=== PATIENT | male | born 1935 | race Caucasian/White ===

== ENCOUNTER 2021-05-19 17:14 | Emergency (ER) | payer OTHER, MEDICARE ==
[2021-05-19] MEDS ORDERED: Acetaminophen 500 MG Tab PO ONE (18:23)
--- NOTE | 2021-05-19 18:23 | EDM.PDOC ---
ED HPI GENERAL MEDICAL PROBLEM - General Chief Complaint: Upper Extremity Injury/Pain Stated Complaint: FELL OUT OF THE BOAT, RIGHT EYE, RIGHT ELBOW, RIBS Time Seen by Provider: 05/19/21 18:16 Source of Information: Reports: Patient, RN, RN Notes Reviewed History Limitations: Reports: No Limitations - History of Present Illness INITIAL COMMENTS - FREE TEXT/NARRATIVE: Kristofer is an 85 y/o male who presents to the ED via personal vehicle with complaints of fall from a boat onto the dock. The patient states the accident occurred about two hours prior to his arrival to this facility. He denies loss of consciousness during the event, however he did strike his head; he currently takes a daily ASA 81mg. The patient reports pain in his right forehead and right ribs. He notes and increase in his rib pain with inspirations. He denies history of brain bleed, head trauma, or rib fractures. He denies vision changes, projectile vomiting, lethargy, palpitations, headache, abdominal pain, or pain to his extremities. He has taken no medications for his symptoms. GCS 15 on arrival. He denies cervical point tenderness or pain to the neck with lateral rotation of the head. Generalized Pain Score (Numeric/FACES): 2 - Related Data Allergies Allergy/AdvReac Type Severity Reaction Status Date / Time No Known Allergies Allergy Verified 05/19/21 17:54 Home Meds: Home Meds Aspirin [Aspirin EC] 81 mg PO DAILY 05/19/21 [History] Furosemide [Lasix] 40 mg PO ASDIRECTED 05/19/21 [History] Insulin Aspart [NovoLOG] 36 units SQ DAILY 05/19/21 [History] Insulin Glarg,Human.Rec.Analog [Lantus] 9 units SQ ASDIRECTED 05/19/21 [History] Lactobacillus Acidophilus [Probiotic] 1 each PO ASDIRECTED 05/19/21 [History] Losartan [Cozaar] 25 mg PO DAILY 05/19/21 [History] Metoprolol Succinate [Toprol XL] 25 mg PO DAILY 05/19/21 [History] Multivitamin [Multi-Day Vitamins] 1 each PO ASDIRECTED 05/19/21 [History] Pioglitazone [Actos] 30 mg PO 05/19/21 [History] Potassium Chloride [Klor-Con] 20 meq PO ASDIRECTED 05/19/21 [History] atorvaSTATin [Lipitor] 40 mg PO BEDTIME 05/19/21 [History] resveratroL [Resveratrol] 100 mg PO ASDIRECTED 05/19/21 [History] Past Medical History Cardiovascular History: Reports: CAD, High Cholesterol, Hypertension Endocrine/Metabolic History: Reports: Diabetes, Type II Social & Family History - Caffeine Use Caffeine Use: Reports: Coffee Review of Systems - Review of Systems Review Of Systems: Comprehensive ROS is negative, except as noted in HPI. ED EXAM, GENERAL - Physical Exam Exam: See Below Exam Limited By: No Limitations General Appearance: Alert, No Apparent Distress Eye Exam: Bilateral Eye: EOMI, Normal Inspection, PERRL (3mm) Ears: Normal External Exam, Normal Canal, Hearing Grossly Normal, Normal TMs Ear Exam: Bilateral Ear: Auricle Normal, Canal Normal, TM normal Nose: Normal Inspection, Normal Mucosa, No Blood Throat/Mouth: Normal Inspection, Normal Oropharynx, Normal Voice, No Airway Compromise Head: Normocephalic, Other (Hematoma to right forehead; 2mm puncture-type wound to right forehead, subcutanous) Neck: Normal Inspection, Supple, Non-Tender, Full Range of Motion, Other (No cervical point tenderness or pain to neck with rotation, flexion, or extension). No: Tender Lateral, Tender Midline Respiratory/Chest: Lungs Clear, Normal Breath Sounds, Accessory Muscle Use, Splinting. No: Chest Non-Tender (To right anteriolateral chest) Cardiovascular: Normal Peripheral Pulses, Regular Rate, Rhythm, No Edema, No Gallop, No JVD, No Murmur, No Rub Peripheral Pulses: 2+: Radial (L), Radial (R) GI/Abdominal: Normal Bowel Sounds, Soft, Non-Tender, No Distention, No Abnormal Bruit, No Mass, Pelvis Stable (Male) Exam: Deferred Rectal (Males) Exam: Deferred Back Exam: Normal Inspection, Full Range of Motion Extremities: Normal Inspection, Normal Range of Motion, Non-Tender, No Pedal Edema, Normal Capillary Refill Neurological: Alert, Oriented, CN II-XII Intact, Normal Cognition, Normal Gait, No Motor/Sensory Deficits Psychiatric: Normal Affect, Normal Mood Skin Exam: Warm, Dry, Normal Color, No Rash, Wound/Incision (2mm puncture wound to right forehead) Course - Vital Signs Last Recorded V/S: Last Vital Signs Temp 97.3 F 05/19/21 17:48 Pulse 74 05/19/21 17:48 Resp 14 05/19/21 17:48 BP 134/78 05/19/21 17:48 Pulse Ox 95 05/19/21 17:48 - Orders/Labs/Meds Meds: Medications Discontinued Medications Generic Name Dose Route Start Last Admin Trade Name Basilia PRN Reason Stop Dose Admin Acetaminophen 1,000 mg 05/19/21 18:23 05/19/21 18:46 Acetaminophen 500 Mg Tab PO 05/19/21 18:24 1,000 mg ONETIME ONE Administration - Radiology Interpretation Free Text/Narrative:: [facility] Final Radiology Report Call: [phone] assistance Online chat: [email or web address] Name: KRISTOFER DOMINGUEZ Age: 85Years M Date: 05/19/2021 SSN: -- : [id number] Study: CT CHEST WO CONT Requesting Physician: Oumou Mehta Images: [id number] Addl Studies: Provided Clinical History: Fall off of boat; On ASA Contrast: Without Contrast Medium: Contrast Amount: Contrast Method: Page 1 of 2 PROCEDURE INFORMATION: Exam: CT Chest Without Contrast; Diagnostic Exam date and time: 05/19/2021 6:30 PM Age: 85 years old Clinical indication: Injury or trauma; Fall; Injury date: Today; Injury details: Pain to right mid rib area; Additional info: Fall off of boat; On asa TECHNIQUE: Imaging protocol: Diagnostic computed tomography of the chest without contrast. Radiation optimization: All CT scans at this facility use at least one of these dose optimization techniques: automated exposure control; mA and/or kV adjustment per patient size (includes targeted exams where dose is matched to clinical indication); or iterative reconstruction. COMPARISON: No relevant prior studies available. FINDINGS: Lungs: Unremarkable. No consolidation. No masses. Pleural spaces: No evidence for pneumothorax or pulmonary contusion. Heart: Status post open heart surgery. Aorta: Unremarkable. No aortic aneurysm. Lymph nodes: Unremarkable. No enlarged lymph nodes. Bones/joints: Acute nondisplaced fracture of the right 7th rib laterally. Soft tissues: Unremarkable. IMPRESSION: 1. Acute nondisplaced fracture of the right 7th rib laterally. 2. No evidence for pneumothorax or pulmonary contusion 3. Incidental note is made of nonobstructive cholelithiasis Thank you for allowing us to participate in the care of your patient. Dictated and Authenticated by: Josh Cunningham MD 05/19/2021 6:49 PM Central Time ([place] & [place]) [facility] [place] [facility] Final Radiology Report Call: [phone] assistance Online chat: [email or web address] Name: KRISTOFER DOMINGUEZ Age: 85Years M Date: 05/19/2021 SSN: -- : [id number] Study: CT HEAD WO CONT Requesting Physician: Oumou Mehta Images: [id number] Addl Studies: Provided Clinical History: Fall off of boat; On ASA Contrast: Without Contrast Medium: Contrast Amount: Contrast Method: Page 1 of 2 PROCEDURE INFORMATION: Exam: CT Head Without Contrast Exam date and time: 05/19/2021 6:30 PM Age: 85 years old Clinical indication: Injury or trauma; Fall; Abrasion; Injury date: Today; Injury details: Right forehead hematoma; Additional info: Fall off of boat; On asa TECHNIQUE: Imaging protocol: Computed tomography of the head without contrast. Radiation optimization: All CT scans at this facility use at least one of these dose optimization techniques: automated exposure control; mA and/or kV adjustment per patient size (includes targeted exams where dose is matched to clinical indication); or iterative reconstruction. COMPARISON: No relevant prior studies available. FINDINGS: Brain: There is no significant midline shift. There is no evidence of acute hemorrhage within the brain parenchyma or the subarachnoid space. Cerebral ventricles: The ventricular system is normal in size and configuration. Paranasal sinuses: The visualized portions of the sinuses are normal. Mastoid air cells: The mastoid sinuses are normal. Orbital cavity: There have been bilateral lens replacements. The orbits are normal. Bones/joints: The skull is normal. Soft tissues: The extracranial soft tissues are normal. IMPRESSION: No acute abnormality. Thank you for allowing us to participate in the care of your patient. Dictated and Authenticated by: Papo Robert MD 05/19/2021 6:50 PM Central Time ([place] & [place]) - Re-Assessments/Exams Free Text/Narrative Re-Assessment/Exam: 05/19/21 CT head and chest obtained. Findings of examination and imaging reviewed with patient. Will treat acute pain with Percocet and IS. Discussed supportive cares for acute pain and the prevention of atelectasis and pneumonia. Patient instructed to follow up with primary care provider in 1-2 days. Red flag signs and symptoms which would warrant reevaluation reviewed. Patient verbalized understanding and agreement with the plan of care. Departure - Departure Time of Disposition: 19:10 Disposition: Home, Self-Care 01 Condition: Good Clinical Impression: Fall on board fishing boat, initial encounter Right rib fracture Qualifiers: Encounter type: initial encounter Rib fracture type: single rib Fracture type: closed Qualified Code(s): S22.31XA - Fracture of one rib, right side, initial encounter for closed fracture Head trauma Qualifiers: Encounter type: initial encounter Qualified Code(s): S09.90XA - Unspecified injury of head, initial encounter Traumatic hematoma of forehead Qualifiers: Encounter type: initial encounter Qualified Code(s): S00.83XA - Contusion of other part of head, initial encounter - Discharge Information *PRESCRIPTION DRUG MONITORING PROGRAM REVIEWED*: Not Applicable *COPY OF PRESCRIPTION DRUG MONITORING REPORT IN PATIENT DOMINGO: Not Applicable Instructions: Rib Fracture Forms: ED Department Discharge Additional Instructions: Rx: Percocet 1.) You may take acetaminophen (Tylenol) 1000mg every six hours for pain. 2.) Use your incentive spirometer 10x every hour, while awake. 3.) While driving home, stop every two hours to walk around for about 10 minutes. 4.) Follow up with your primary care provider when you return home, or stop at a local emergency department should you develop increasing shortness of breath, chest pain, palpitations, projectile vomiting, seizure-like activity, vision changes, pupillary changes, or increased sleepiness. Sepsis Event Note (ED) - Evaluation Sepsis Screening Result: No Definite Risk
--- NOTE | 2021-05-19 18:49 | CT ---
PROCEDURE INFORMATION: Exam: CT Chest Without Contrast; Diagnostic Exam date and time: 05/19/2021 6:30 PM Age: 85 years old Clinical indication: Injury or trauma; Fall; Injury date: Today; Injury details: Pain to right mid rib area; Additional info: Fall off of boat; On asa TECHNIQUE: Imaging protocol: Diagnostic computed tomography of the chest without contrast. Radiation optimization: All CT scans at this facility use at least one of these dose optimization techniques: automated exposure control; mA and/or kV adjustment per patient size (includes targeted exams where dose is matched to clinical indication); or iterative reconstruction. COMPARISON: No relevant prior studies available. FINDINGS: Lungs: Unremarkable. No consolidation. No masses. Pleural spaces: No evidence for pneumothorax or pulmonary contusion. Heart: Status post open heart surgery. Aorta: Unremarkable. No aortic aneurysm. Lymph nodes: Unremarkable. No enlarged lymph nodes. Bones/joints: Acute nondisplaced fracture of the right 7th rib laterally. Soft tissues: Unremarkable. IMPRESSION: 1. Acute nondisplaced fracture of the right 7th rib laterally. 2. No evidence for pneumothorax or pulmonary contusion 3. Incidental note is made of nonobstructive cholelithiasis
--- NOTE | 2021-05-19 18:50 | CT ---
PROCEDURE INFORMATION: Exam: CT Head Without Contrast Exam date and time: 05/19/2021 6:30 PM Age: 85 years old Clinical indication: Injury or trauma; Fall; Abrasion; Injury date: Today; Injury details: Right forehead hematoma; Additional info: Fall off of boat; On asa TECHNIQUE: Imaging protocol: Computed tomography of the head without contrast. Radiation optimization: All CT scans at this facility use at least one of these dose optimization techniques: automated exposure control; mA and/or kV adjustment per patient size (includes targeted exams where dose is matched to clinical indication); or iterative reconstruction. COMPARISON: No relevant prior studies available. FINDINGS: Brain: There is no significant midline shift. There is no evidence of acute hemorrhage within the brain parenchyma or the subarachnoid space. Cerebral ventricles: The ventricular system is normal in size and configuration. Paranasal sinuses: The visualized portions of the sinuses are normal. Mastoid air cells: The mastoid sinuses are normal. Orbital cavity: There have been bilateral lens replacements. The orbits are normal. Bones/joints: The skull is normal. Soft tissues: The extracranial soft tissues are normal. IMPRESSION: No acute abnormality.
== END 2021-05-19 19:46 | disposition home or self-care (01) ==
LOC: DL.ED 17:14
DX: S22.31XA Fracture of one rib, right side, initial encounter for closed fracture (principal); S00.83XA Contusion of other part of head, initial encounter; I10 Essential (primary) hypertension; E78.00 Pure hypercholesterolemia, unspecified; I25.10 Atherosclerotic heart disease of native coronary artery without angina pectoris; E11.9 Type 2 diabetes mellitus without complications; Z79.4 Long term (current) use of insulin; Z79.82 Long term (current) use of aspirin; Z79.899 Other long term (current) drug therapy; V92.09XA Drowning and submersion due to fall off unspecified watercraft, initial encounter
CPT/HCPCS: 70450; 71250; 99283-25; A9270-GY